=== PATIENT | male | born 1975 | race Hispanic/Latino ===

== ENCOUNTER 2017-09-23 06:41 | Observation (INO) | payer BC, OTHER ==
[2017-09-23 07:11] VITALS: BMI 32.8
[2017-09-23 07:27] VITALS: O2SAT 97
--- NOTE | 2017-09-23 07:28 | ED PDOC ---
Arrival/HPI - General Chief Complaint: Lower Extremity Problem/Injury Time Seen by Provider: 09/23/17 07:12 Historian: Patient - History of Present Illness Narrative History of Present Illness (Text): 09/23/17 07:26 A 42 year old male presents to the emergency department complaining of three days history of right leg pain and swelling. Denies any injury. 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 Patient denies any chest pain, shortness of breath or any other complaints at this time. Patient smokes a pack of cigarettes per day, denies drinking alcohol. Time/Duration: Other (3 days) Symptom Onset: Sudden Symptom Course: Unchanged Activities at Onset: Rest Context: Home Past Medical History - Provider Review Nursing Documentation Reviewed: Yes - Infectious Disease Hx of Infectious Diseases: None - Cardiac Hx Pacemaker: No - Neurological Hx Paralysis: No - Hematological/Oncological Hx Blood Transfusions: No - Musculoskeletal/Rheumatological Hx Musculoskeletal Disorders: No - Psychiatric Hx Substance Use: No - Anesthesia Hx Anesthesia Reactions: No Hx Malignant Hyperthermia: No - Suicidal Assessment Feels Threatened In Home Enviroment: No Family/Social History - Physician Review Nursing Documentation Reviewed: Yes Family/Social History: No Known Family HX Smoking Status: Current Some Days Smoker Hx Alcohol Use: Yes (SOCIAL) Hx Substance Use: No Allergies/Home Meds Allergies/Adverse Reactions: Allergies No Known Allergies Allergy (Verified 10/17/14 12:34) Home Medications: Home Meds Medication Instructions Recorded Confirmed No Known Home Med 09/23/17 09/23/17 Review of Systems - Physician Review All systems were reviewed & negative as marked: Yes - Review of Systems Respiratory: absent: SOB Cardiovascular: absent: Chest Pain Musculoskeletal: Other (right lower extremity pain and swelling) Physical Exam Vital Signs Reviewed: Yes Vital Signs Temp Pulse Resp BP Pulse Ox 09/23/17 07:26 98.6 F 90 14 140/80 97 Appearance: Positive for: Well-Appearing, Non-Toxic, Comfortable Pain Distress: None Mental Status: Positive for: Alert and Oriented X 3 - Systems Exam Head: Present: Atraumatic, Normocephalic Pupils: Present: PERRL Extroacular Muscles: Present: EOMI Conjunctiva: Present: Normal Mouth: Present: Moist Mucous Membranes Neck: Present: Normal Range of Motion Respiratory/Chest: Present: Clear to Auscultation, Good Air Exchange. No: Respiratory Distress, Accessory Muscle Use Cardiovascular: Present: Regular Rate and Rhythm, Normal S1, S2. No: Murmurs Abdomen: No: Tenderness, Distention, Peritoneal Signs Back: Present: Normal Inspection Upper Extremity: Present: Normal Inspection. No: Cyanosis, Edema Lower Extremity: Present: Tenderness (right calf tenderness), Swelling (right lower extremity swelling), Other (mild erythema; large wart on achilles tendon) Neurological: Present: GCS=15, CN II-XII Intact, Speech Normal Skin: Present: Warm, Dry, Normal Color. No: Rashes Psychiatric: Present: Alert, Oriented x 3, Normal Insight, Normal Concentration Medical Decision Making ED Course and Treatment: 09/23/17 07:23 Impression: A 42 year old male with right lower extremity pain and swelling. Plan: -- US lower extremity -- labs -- Reassess and disposition Progress Notes: 09/23/17 08:27 US lower extremity Creator : Mike Lerma MD FINDINGS: There is occlusive hypoechoic thrombus in the right femoral and popliteal vein. The right profunda femoral vein and right common femoral vein are patent. There is no sonographic evidence for deep venous thrombosis in the visualized segments of the left lower extremity. IMPRESSION: Extensive right lower extremity DVT in the femoral and popliteal veins. 09/23/17 09:[address] Raymundo, hospitalist, who accepts and agrees for patient admission. - Lab Interpretations Lab Results: 09/23/17 08:45 09/23/17 08:45 Lab Results 09/23/17 08:45: Sodium 142, Potassium 4.7, Chloride 107, Carbon Dioxide 28, Anion Gap 12, BUN 14, Creatinine 0.7 L, Est GFR ( Amer) > 60, Est GFR ( Non-Af Amer) > 60, Random Glucose 114 H, Calcium 9.0, Total Bilirubin 0.8, AST 23, ALT 48, Alkaline Phosphatase 99, Total Protein 7.0, Albumin 3.6, Globulin 3.4, Albumin/Globulin Ratio 1.0 L 09/23/17 08:45: PT 12.8 H, INR 1.11 H, APTT 32.6 09/23/17 08:45: WBC 12.5 H D, RBC 4.78, Hgb 15.0, Hct 43.7, MCV 91.4, MCH 31.4, MCHC 34.3, RDW 12.8, Plt Count 166, MPV 10.1, Gran % 80.1 H, Lymph % (Auto) 11.9 L, Ferry % (Auto) 6.8 H, Eos % (Auto) 1.0 L, Baso % (Auto) 0.2, Gran # 9.98 H, Lymph # (Auto) 1.5, Ferry # (Auto) 0.9 H, Eos # (Auto) 0.1, Baso # (Auto) 0.03 I have reviewed the lab results: Yes - RAD Interpretation Radiology Orders: 09/23/17 07:19 DUPLEX LOWER EXTRM VEIN BILAT [US] Stat - Medication Orders Current Medication Orders: Discontinued Medications Enoxaparin Sodium (Lovenox) 120 mg SC STAT STA PRN Reason: Protocol Stop: 09/23/17 07:55 Last Admin: 09/23/17 08:49 Dose: 120 mg Subcutaneous Administrations Document 09/23/17 08:49 SRE (Rec: 09/23/17 08:49 SRE [id number]) Injection Site MAR Injection Site Left Abdomen Charges for Administration # of Subcutaneous Administrations 1 - Scribe Statement The provider has reviewed the documentation as recorded by the Alana Rogers Provider Scribe Attestation: All medical record entries made by the Scribe were at my direction and personally dictated by me. I have reviewed the chart and agree that the record accurately reflects my personal performance of the history, physical exam, medical decision making, and the department course for this patient. I have also personally directed, reviewed, and agree with the discharge instructions and disposition. Disposition/Present on Arrival - Present on Arrival Any Indicators Present on Arrival: No History of DVT/PE: No History of Uncontrolled Diabetes: No Urinary Catheter: No History of Decub. Ulcer: No History Surgical Site Infection Following: None - Disposition Have Diagnosis and Disposition been Completed?: Yes Diagnosis: Deep vein blood clot of right lower extremity Disposition: HOSPITALIZED Disposition Time: 09:28 Patient Plan: Observation Condition: GOOD Referrals: WiChorusjeri Pope, [Non-Staff] - Follow up with primary Forms: Swivl (Bur[place]ian)
[2017-09-23] MEDS ORDERED: Enoxaparin 120 mg Syringe SC STA (07:54)
--- NOTE | 2017-09-23 08:25 | US ---
HISTORY: Leg pain and swelling. Evaluate for DVT PHYSICIAN(S): Mike Romero MD. TECHNIQUE: Duplex sonography and color-flow Doppler with graded compression were used to evaluate the deep venous systems of both lower extremities. FINDINGS: There is occlusive hypoechoic thrombus in the right femoral and popliteal vein. The right profunda femoral vein and right common femoral vein are patent. There is no sonographic evidence for deep venous thrombosis in the visualized segments of the left lower extremity. IMPRESSION: Extensive right lower extremity DVT in the femoral and popliteal veins
[2017-09-23 08:54] LABS: BASO # 0.03 K/mm3 (0.0-2.0); BASO % 0.2 % (0.0-3.0); EOS # 0.1 (0.0-0.7); GRAN # 9.98 (1.4-6.5); GRAN % 80.1 % (50.0-68.0); LYMPH # 1.5 (1.2-3.4); LYMPH % 11.9 % (22.0-35.0); MEAN CELL VOLUME 91.4 fl (80.0-105.0); MEAN CORPUSCULAR HEMOGLOBIN 31.4 pg (25.0-35.0); MEAN CORPUSCULAR HGB CONC 34.3 g/dl (31.0-37.0); MEAN PLATELET VOLUME 10.1 fl (7.0-11.0); MONO # 0.9 (0.1-0.6); MONO % 6.8 % (1.0-6.0); RBC 4.78 10^6/uL (3.5-6.1); RED CELL DISTRIBUTION WIDTH 12.8 % (11.5-14.5); WHITE BLOOD COUNT 12.5 10^3/ul (4.5-11.0)
[2017-09-23 09:06] LABS: ALBUMIN 3.6 g/dL (3.0-4.8); ALT/SGPT 48 U/L (7-56); AST/SGOT 23 U/L (17-59); BLOOD UREA NITROGEN 14 mg/dL (7-21); GFR AFRICAN-AMERICAN > 60; GFR NON-AFRICAN AMERICAN > 60
[2017-09-23 09:07] LABS: INR 1.11 (0.93-1.08); PARTIAL THROMBOPLASTIN TIME 32.6 Seconds (25.1-36.5); PROTHROMBIN TIME 12.8 SECONDS (9.4-12.5)
--- NOTE | 2017-09-23 10:14 | CP.PCM.HP ---
<Sixto Grant - Last Filed: 09/23/17 15:09> History of Present Illness - History of Present Illness History of Present Illness: Sixto Grant DO PGY1 - IM H&P for Dr. Raymundo CC: R leg swelling and pain HPI: 42 yo M with PMH of RLE cellulitis and subsequent sepsis in 2002 presents complaining of pain and swelling in his right leg for the past 4 days. Patient also reports subjective fever 3 days ago, which he has been self-medicating with amoxicillin. Pain and swelling started gradually, and got progressively worse. He has never had this pain before. He denies chest pain, shortness of breath, abdominal pain, nausea, vomiting, diarrhea, anxiety or sense of impending doom. 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 ROS: 12 point ROS was obtained and was negative, except as above. PMH: Sepsis secondary to LLE cellulitis in 2002 PSH: Denies FHx: Atrial fibrillation in mother, lung CA in father, CVA in mother Soc: Tobacco 41 PYH, currently 1 PPD smoker. Alcohol social use, 2-3 drinks monthly. Illicits smokes marijuana daily. All: NKDA Home medications: None PMD: Condo Present on Admission - Present on Admission Any Indicators Present on Admission: No History of DVT/PE: No Past Patient History - Infectious Disease Hx of Infectious Diseases: None - Past Social History Smoking Status: Current Some Days Smoker - CARDIAC Hx Pacemaker: No - NEUROLOGICAL Hx Paralysis: No - HEMATOLOGICAL/ONCOLOGICAL Hx Blood Transfusions: No - MUSCULOSKELETAL/RHEUMATOLOGICAL Hx Musculoskeletal Disorders: No - PSYCHIATRIC Hx Substance Use: No - SURGICAL HISTORY Hx Surgeries: Yes - ANESTHESIA Hx Anesthesia Reactions: No Hx Malignant Hyperthermia: No Meds Allergies/Adverse Reactions: Allergies Allergy/AdvReac Type Severity Reaction Status Date / Time No Known Allergies Allergy Verified 10/17/14 12:34 Physical Exam - Constitutional Appears: Non-toxic, No Acute Distress - Head Exam Head Exam: ATRAUMATIC, NORMOCEPHALIC - Eye Exam Eye Exam: EOMI, Normal appearance, PERRL - ENT Exam ENT Exam: Mucous Membranes Moist - Neck Exam Neck exam: Positive for: Normal Inspection. Negative for: Lymphadenopathy - Respiratory Exam Respiratory Exam: Clear to Auscultation Bilateral, NORMAL BREATHING PATTERN. absent: Rales, Rhonchi, Wheezes - Cardiovascular Exam Cardiovascular Exam: RRR, +S1, +S2. absent: Tachycardia, Diastolic murmur, Gallop, Systolic Murmur - GI/Abdominal Exam GI & Abdominal Exam: Normal Bowel Sounds, Soft. absent: Tenderness - Extremities Exam Additional comments: RLE warm, erythematous to knee, swollen compared to LLE, mild medial calf tenderness LLE unremarkable. No swelling or calf tenderness. - Neurological Exam Neurological exam: Alert, CN II-XII Intact, Oriented x3 - Psychiatric Exam Psychiatric exam: Normal Affect, Normal Mood - Skin Skin Exam: Dry, Intact, Normal Color Results - Vital Signs Recent Vital Signs: Last Vital Signs Temp 98.6 F 09/23/17 07:26 Pulse 90 09/23/17 07:26 Resp 14 09/23/17 07:26 BP 140/80 09/23/17 07:26 Pulse Ox 97 09/23/17 07:26 - Labs Result Diagrams: 09/23/17 08:45 09/23/17 08:45 Assessment & Plan - Assessment and Plan (Free Text) Assessment: 42 yo M with PMH of sepsis secondary to RLE cellulitis 15 years ago, 46 pack- year smoking history current active smoker, presents complaining of RLE pain and swelling. 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 Proximal DVT noted on LE duplex ultrasound. Right proximal extensive symptomatic DVT, likely provoked - LE duplex ultrasound shows occlusive hypoechoic thrombus in R femoral and politeal vein. - Likely provoked 2/2 smoking and prolonged immobilization - Patient received 120mg lovenox in the ER; weight based, therapeutic, for DVT - Will start heparin drip in 12 hours - Requested IR consult for possible mechanical thrombectomy/thrombolysis - Discussed with patient the diagnosis, and benefits of mechanical intervention vs anticoagulation - Patient will need to be on long-term anticoagulation; warfarin or eliquis for 3-6 months Tobacco use - Discussed smoking cessation - Nicotine patch, 21mg daily Case discussed and reviewed with attending, Dr. Raymundo <Shaunna Raymundo - Last Filed: 09/23/17 15:52> Results - Vital Signs Recent Vital Signs: Last Vital Signs Temp 98.2 F 09/23/17 12:47 Pulse 86 09/23/17 12:47 Resp 18 09/23/17 12:47 BP 123/72 09/23/17 12:47 Pulse Ox 97 09/23/17 10:23 - Labs Result Diagrams: 09/23/17 08:45 09/23/17 08:45 Attending/Attestation - Attestation I have personally seen and examined this patient.: Yes I have fully participated in the care of the patient.: Yes I have reviewed all pertinent clinical information: Yes Notes (Text): 09/23/17 15:47 Medical record note made by the resident after discussion with my direction and input after the patient was personally seen and examined by me. I have reviewed the chart and agree that the record accurately reflects by personal performance of the history, physical exam, data review, and medical decision-making, in the course for the patient. I have also personally directed the plan of care. 42 yrs LE duplex ultrasound shows occlusive hypoechoic thrombus in R femoral and politeal vein. old male with occlusive DVT in Right femoral and politeal vein, has been started on anticogulation.We will get IR evaluation for possible catheter thrombolysis of the clot. Issue of anticoagulation was discussed in detail with him. Management plan was discussed in detail with patient. Education was provided. .
[2017-09-23 10:28] VITALS: BP 123/72; PULSE 86; RESP 18; TEMP 98.2
[2017-09-23] MEDS ORDERED: Influenza Vaccine 60 mcg/0.5 mL SYR (4YR UP) IM ONE (12:59)
[2017-09-23] MEDS ORDERED: Pneumococcal 23-Valent Vaccine IM ONE (12:59)
[2017-09-23] MEDS ORDERED: Heparin25000 units/250ml 1/2NS 25,000 UNITS/250 ML BAG IV PRN (20:00)
--- NOTE | 2017-09-23 20:31 | CP.PCM.DIS ---
<RudySixto - Last Filed: 09/23/17 20:24> Provider - Provider Date of Admission: 09/23/17 09:25 Attending physician: Shaunna Raymundo MD Primary care physician: Constantine Tucker MD Consults: MONICA: Nick Time Spent in preparation of Discharge (in minutes): 35 Diagnosis - Discharge Diagnosis (1) Deep vein blood clot of right lower extremity Status: Acute Priority: High Hospital Course - Lab Results Lab Results: Most Recent Lab Values WBC 12.5 10^3/ul (4.5-11.0) H D 09/23/17 08:45 RBC 4.78 10^6/uL (3.5-6.1) 09/23/17 08:45 Hgb 15.0 g/dL (14.0-18.0) 09/23/17 08:45 Hct 43.7 % (42.0-52.0) 09/23/17 08:45 MCV 91.4 fl (80.0-105.0) 09/23/17 08:45 MCH 31.4 pg (25.0-35.0) 09/23/17 08:45 MCHC 34.3 g/dl (31.0-37.0) 09/23/17 08:45 RDW 12.8 % (11.5-14.5) 09/23/17 08:45 Plt Count 166 10^3/uL (120.0-450.0) 09/23/17 08:45 MPV 10.1 fl (7.0-11.0) 09/23/17 08:45 Gran % 80.1 % (50.0-68.0) H 09/23/17 08:45 Lymph % (Auto) 11.9 % (22.0-35.0) L 09/23/17 08:45 Walsh % (Auto) 6.8 % (1.0-6.0) H 09/23/17 08:45 Eos % (Auto) 1.0 % (1.5-5.0) L 09/23/17 08:45 Baso % (Auto) 0.2 % (0.0-3.0) 09/23/17 08:45 Gran # 9.98 (1.4-6.5) H 09/23/17 08:45 Lymph # (Auto) 1.5 (1.2-3.4) 09/23/17 08:45 Walsh # (Auto) 0.9 (0.1-0.6) H 09/23/17 08:45 Eos # (Auto) 0.1 (0.0-0.7) 09/23/17 08:45 Baso # (Auto) 0.03 K/mm3 (0.0-2.0) 09/23/17 08:45 PT 12.8 SECONDS (9.4-12.5) H 09/23/17 08:45 INR 1.11 (0.93-1.08) H 09/23/17 08:45 APTT 32.6 Seconds (25.1-36.5) 09/23/17 08:45 Sodium 142 mmol/L (132-148) 09/23/17 08:45 Potassium 4.7 mmol/L (3.6-5.0) 09/23/17 08:45 Chloride 107 mmol/L (98-107) 09/23/17 08:45 Carbon Dioxide 28 mmol/L (21-33) 09/23/17 08:45 Anion Gap 12 (10-20) 09/23/17 08:45 BUN 14 mg/dL (7-21) 09/23/17 08:45 Creatinine 0.7 mg/dl (0.8-1.5) L 09/23/17 08:45 Est GFR ( Amer) > 60 09/23/17 08:45 Est GFR (Non-Af Amer) > 60 09/23/17 08:45 Random Glucose 114 mg/dL (70-110) H 09/23/17 08:45 Calcium 9.0 mg/dL (8.4-10.5) 09/23/17 08:45 Total Bilirubin 0.8 mg/dL (0.2-1.3) 09/23/17 08:45 AST 23 U/L (17-59) 09/23/17 08:45 ALT 48 U/L (7-56) 09/23/17 08:45 Alkaline Phosphatase 99 U/L (38-126) 09/23/17 08:45 Total Protein 7.0 g/dL (5.8-8.3) 09/23/17 08:45 Albumin 3.6 g/dL (3.0-4.8) 09/23/17 08:45 Globulin 3.4 gm/dL 09/23/17 08:45 Albumin/Globulin Ratio 1.0 (1.1-1.8) L 09/23/17 08:45 - Hospital Course Hospital Course: 42 yo M with PMH of sepsis 2/2 cellulitis RLE 2002 who initially presented complaining of pain and swelling in his right leg for the past 4 days. 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 Patient has 46 pack-year smoking history and is a current active smoker. Patient was found to have proximal DVT of the RLE, occlusive thrombus in right femoral and popliteal veins. This is the first instance of DVT, considered provoked. IR was consulted for possible intravascular thrombolysis/thrombectomy , but advised medical management unless patient's symptoms were intolerable. Patient was comfortable, and elected for medical management. Patient had received 125mg lovenox in the ER. Discussed with patient risks and benefits of anticoagulation, and patient expressed understanding and agreement with plan to start anticoagulation. Patient was given first dose of Eliquis in the hospital, and was instructed to continue 10mg PO BID x7d, then 5mg PO BID thereafter. Patient was instructed to avoid intoxicants, and to quit smoking. Patient was also advised to take breaks while driving, to ambulate and stretch his legs. Patient was also advised that if he fell or had any head trauma, while on blood thinners, to report to the ER immediately. Patient again verbalized understanding and acceptance of this advice. Patient was given prescriptions for eliquis and nicotine patches for smoking cessation. He was instructed to follow up with PMD of his choice, or at the [facility] clinic, within one week. All questions were answered to his satisfaction, and he was discharged to home. Discharge Exam - Head Exam Head Exam: ATRAUMATIC, NORMOCEPHALIC - Eye Exam Eye Exam: EOMI, Normal appearance, PERRL Pupil Exam: NORMAL ACCOMODATION - ENT Exam ENT Exam: Mucous Membranes Moist - Neck Exam Neck exam: Normal Inspection - Respiratory Exam Respiratory Exam: Clear to PA & Lateral, NORMAL BREATHING PATTERN. absent: Accessory Muscle Use, Rales, Rhonchi, Wheezes, Respiratory Distress - Cardiovascular Exam Cardiovascular Exam: RRR, +S1, +S2. absent: Tachycardia, Diastolic murmur, Gallop, Rubs, Systolic Murmur - GI/Abdominal Exam GI & Abdominal Exam: Normal Bowel Sounds, Soft. absent: Tenderness - Extremities Exam Extremities exam: calf tenderness (R, mild), normal capillary refill, pedal edema (nonpitting, R), pedal pulses present - Neurological Exam Neurological exam: Alert, CN II-XII Intact, Oriented x3 - Psychiatric Exam Psychiatric exam: Normal Affect, Normal Mood - Skin Skin Exam: Dry, Intact, Normal Color Discharge Plan - Discharge Medications Prescriptions: Apixaban [Eliquis] 5 mg PO BID #30 tab Nicotine 21 mg/24 hr [Nicoderm Cq] 1 patch TD DAILY #7 patch - Follow Up Plan Condition: GOOD Disposition: HOME/ ROUTINE Instructions: Pulmonary Embolism (DC), Pulmonary Embolism (GEN), Deep Venous Thrombosis (ED), Deep Venous Thrombosis (DC), Deep Venous Thrombosis (GEN), Leg Edema (ED) Additional Instructions: 1. Continue to take eliquis 10mg twice daily for 7 days, then take 5mg twice daily 2. Follow up with a primary care doctor of your choice within 1 week. You can follow up in the [facility] with [facility] 3. Eliquis will increase your risk of bleeding; avoid alcohol or other intoxicants; if you fall or have any head trauma, come to the ER immediately 4. Continue to wear the compression stockings, especially while driving/immobile ; can wait a few days to start wearing them if too uncomfortable now 5. Take breaks from long drives, to stand and walk; few minutes every hour 6. You must quit smoking, as discussed; use the nicotine patches, once daily; you can not smoke while using the nicotine patch 7. For any new or worsening concerns, return to the ER Referrals: Constantine Tucker MD [Primary Care Provider] - <Shaunna Raymundo - Last Filed: 09/24/17 16:17> Provider - Provider Date of Admission: 09/23/17 09:25 Attending physician: Shaunna Raymundo MD Primary care physician: Constantine Tucker MD Hospital Course - Lab Results Lab Results: Most Recent Lab Values WBC 12.5 10^3/ul (4.5-11.0) H D 09/23/17 08:45 RBC 4.78 10^6/uL (3.5-6.1) 09/23/17 08:45 Hgb 15.0 g/dL (14.0-18.0) 09/23/17 08:45 Hct 43.7 % (42.0-52.0) 09/23/17 08:45 MCV 91.4 fl (80.0-105.0) 09/23/17 08:45 MCH 31.4 pg (25.0-35.0) 09/23/17 08:45 MCHC 34.3 g/dl (31.0-37.0) 09/23/17 08:45 RDW 12.8 % (11.5-14.5) 09/23/17 08:45 Plt Count 166 10^3/uL (120.0-450.0) 09/23/17 08:45 MPV 10.1 fl (7.0-11.0) 09/23/17 08:45 Gran % 80.1 % (50.0-68.0) H 09/23/17 08:45 Lymph % (Auto) 11.9 % (22.0-35.0) L 09/23/17 08:45 Walsh % (Auto) 6.8 % (1.0-6.0) H 09/23/17 08:45 Eos % (Auto) 1.0 % (1.5-5.0) L 09/23/17 08:45 Baso % (Auto) 0.2 % (0.0-3.0) 09/23/17 08:45 Gran # 9.98 (1.4-6.5) H 09/23/17 08:45 Lymph # (Auto) 1.5 (1.2-3.4) 09/23/17 08:45 Walsh # (Auto) 0.9 (0.1-0.6) H 09/23/17 08:45 Eos # (Auto) 0.1 (0.0-0.7) 09/23/17 08:45 Baso # (Auto) 0.03 K/mm3 (0.0-2.0) 09/23/17 08:45 PT 12.8 SECONDS (9.4-12.5) H 09/23/17 08:45 INR 1.11 (0.93-1.08) H 09/23/17 08:45 APTT 32.6 Seconds (25.1-36.5) 09/23/17 08:45 Sodium 142 mmol/L (132-148) 09/23/17 08:45 Potassium 4.7 mmol/L (3.6-5.0) 09/23/17 08:45 Chloride 107 mmol/L (98-107) 09/23/17 08:45 Carbon Dioxide 28 mmol/L (21-33) 09/23/17 08:45 Anion Gap 12 (10-20) 09/23/17 08:45 BUN 14 mg/dL (7-21) 09/23/17 08:45 Creatinine 0.7 mg/dl (0.8-1.5) L 09/23/17 08:45 Est GFR ( Amer) > 60 09/23/17 08:45 Est GFR (Non-Af Amer) > 60 09/23/17 08:45 Random Glucose 114 mg/dL (70-110) H 09/23/17 08:45 Calcium 9.0 mg/dL (8.4-10.5) 09/23/17 08:45 Total Bilirubin 0.8 mg/dL (0.2-1.3) 09/23/17 08:45 AST 23 U/L (17-59) 09/23/17 08:45 ALT 48 U/L (7-56) 09/23/17 08:45 Alkaline Phosphatase 99 U/L (38-126) 09/23/17 08:45 Total Protein 7.0 g/dL (5.8-8.3) 09/23/17 08:45 Albumin 3.6 g/dL (3.0-4.8) 09/23/17 08:45 Globulin 3.4 gm/dL 09/23/17 08:45 Albumin/Globulin Ratio 1.0 (1.1-1.8) L 09/23/17 08:45 Attending/Attestation - Attestation I have personally seen and examined this patient.: Yes I have fully participated in the care of the patient.: Yes I have reviewed all pertinent clinical information, including history, physical exam and plan: Yes Notes (Text): 09/24/17 16:14 Medical record note made by the resident after discussion with my direction and input after the patient was personally seen and examined by me. I have reviewed the chart and agree that the record accurately reflects by personal performance of the history, physical exam, data review, and medical decision-making, in the course for the patient. I have also personally directed the plan of care. 42 yrs male with no PMH was admitted with leg pain and was found to have occlusive hypoechoic thrombus in R femoral and politeal vein. old male with occlusive DVT in Right femoral and politeal vein, Patient was evaluated by IR and felt that he does not need any catheter thrombolysis at this time.He was treated with lovenox , was switched to Apixiban at the time of discharge.Patient is on room air, and is not tachypnic. The risk and benefit of anticoagulation was discussed in detail. Management plan was discussed in detail with patient. Education was provided. .
== END 2017-09-23 20:53 | disposition home or self-care (01) ==
LOC: ED 06:41 → ERH 09:25 → 5RNO 10:55
PROVIDERS: ADMIT Internal Medicine; ATTEND Internal Medicine
DX: I82.411 Acute embolism and thrombosis of right femoral vein (principal); I82.431 Acute embolism and thrombosis of right popliteal vein; F12.90 Cannabis use, unspecified, uncomplicated; F17.200 Nicotine dependence, unspecified, uncomplicated; Z82.3 Family history of stroke; Z80.1 Family history of malignant neoplasm of trachea, bronchus and lung
CPT/HCPCS: 80053; 85025; 85610; 85730; 93970; 96372; 99285; G0378; J1650